=== PATIENT | male | born 1995 | race Caucasian/White ===

== ENCOUNTER 2018-03-17 13:41 | Emergency (ER) | payer BC, OTHER ==
[2018-03-17] MEDS: DIPHTH/TET/ACEL PERTUSS (ADULT) 0.5 ML VIAL IM* (15:05)
[2018-03-17] MEDS: HYDROCODONE/APAP (5/325) TAB PO (15:07)
== END 2018-03-17 17:19 | disposition home or self-care (01) ==
LOC: E/R 13:41
DX: S62.324A Displaced fracture of shaft of fourth metacarpal bone, right hand, initial encounter for closed fracture (principal); S50.812A Abrasion of left forearm, initial encounter; S50.811A Abrasion of right forearm, initial encounter; R51 Headache; V49.40XA Driver injured in collision with unspecified motor vehicles in traffic accident, initial encounter; Z23 Encounter for immunization
CPT/HCPCS: 29125; 70450; 72125; 73130-LT; 73130-RT; 90471; 90715; 99285-25